=== PATIENT | male | born 1980 ===

== ENCOUNTER 2019-01-18 12:51 | Emergency (ER) | payer OTHER ==
[~2019-01-18] VITALS: Ht 177.8 cm; Wt 81.6 kg
[2019-01-18] MEDS ORDERED: COZAAR100 MG (12:57)
== END 2019-01-18 14:56 | disposition home or self-care (01) ==
LOC: ER 12:51
DX: J11.1 Influenza due to unidentified influenza virus with other respiratory manifestations (principal)

== ENCOUNTER 2021-05-30 23:59 | Emergency (ER) | payer OTHER ==
[~2021-05-30] VITALS: Ht 177.8 cm; Wt 136.1 kg
[~2021-05-30 23:59] MED LIST: COZAAR100 MG
[2021-05-31] MEDS ORDERED: VALSARTAN 320 MG (00:17)
== END 2021-05-31 17:05 | disposition home or self-care (01) ==
LOC: ER 23:59
DX: R07.89 Other chest pain (principal); I10 Essential (primary) hypertension